=== PATIENT | male | born 1985 ===

== ENCOUNTER 2018-03-27 23:47 | Emergency (ER) | payer OTHER ==
[2018-03-27 23:54] VITALS: TEMP 97.5
--- NOTE | 2018-03-28 01:33 | ED PDOC ---
Lower Extremity Pain/Injury Time Seen by Provider: 03/28/18 00:29 Chief Complaint (Nursing): Lower Extremity Problem/Injury Chief Complaint (Provider): left ankle injury History Per: Patient History/Exam Limitations: no limitations Onset/Duration Of Symptoms: Days (yesterday) Current Symptoms Are (Timing): Still Present Additional Complaint(s): 32 y/o male presents to the ED complaining of rolling his left ankle after missing the curb yesterday morning. Patient reports pain to the ankle throughout the entire day. He notes that tonight his ankle gave out when he tried to plant his left foot while walking, prompting ED visit. Patient denies any prior injury to this ankle. The pain and swelling is localized to the outside of the ankle, w/o any radiation. He took Tylenol at 21:00 with minimal relief, and reports that the pain is worsened with movement and ambulation. Patient denies any other injury at this time. NO PMD Past Medical History Reviewed: Historical Data, Nursing Documentation, Vital Signs Vital Signs: Last Vital Signs Temp 97.5 F L 03/27/18 23:51 Pulse 100 H 03/27/18 23:51 Resp 18 03/27/18 23:51 BP 122/81 03/27/18 23:51 Pulse Ox 99 03/27/18 23:51 - Medical History PMH: No Chronic Diseases - Surgical History Other surgeries: surgery on left arm for torn muscle - Family History Family History: States: Unknown Family Hx - Social History Current smoker - smoking cessation education provided: No Alcohol: None Drugs: Denies - Home Medications Home Medications: Ambulatory Orders Medication Instructions Recorded Ibuprofen [Motrin Tab] 800 mg PO Q8 PRN #24 tab 03/28/18 - Allergies Allergies/Adverse Reactions: Allergies Allergy/AdvReac Type Severity Reaction Status Date / Time No Known Allergies Allergy Verified 03/27/18 23:51 Review of Systems ROS Statement: Except As Marked, All Systems Reviewed And Found Negative Constitutional: Negative for: Fever Musculoskeletal: Positive for: Foot Pain (left ankle) Physical Exam - Reviewed Nursing Documentation Reviewed: Yes Vital Signs Reviewed: Yes - Physical Exam Appears: Positive for: Well, Non-toxic, No Acute Distress Head Exam: Positive for: ATRAUMATIC, NORMOCEPHALIC Skin: Positive for: Normal Color, Warm, Dry Eye Exam: Positive for: EOMI, PERRL Neck: Positive for: Painless ROM, Supple Cardiovascular/Chest: Positive for: Regular Rate, Rhythm. Negative for: Murmur Respiratory: Positive for: Normal Breath Sounds. Negative for: Decreased Breath Sounds, Accessory Muscle Use, Respiratory Distress Gastrointestinal/Abdominal: Positive for: Soft. Negative for: Tenderness, Distended, Guarding Extremity: Positive for: Tenderness (to lateral malleolus of left ankle), Capillary Refill (intact), Swelling (to lateral malleous; no ecchymosis or skin break), Other (sensation intact). Negative for: Normal ROM (decreased range of motion of left ankle secondary to pain), Pedal Edema, Calf Tenderness, Deformity Neurologic/Psych: Positive for: Alert, Oriented (x3), Gait (limping in ED). Negative for: Motor/Sensory Deficits, Aphasia, Facial Droop - ECG O2 Sat by Pulse Oximetry: 99 (RA) Pulse Ox Interpretation: Normal Medical Decision Making Medical Decision Making: Time: --00:37 Impression: --left ankle injury, likely ankle sprain Plan: --Toradol 30 mg IM --Left Ankle X-ray Reassess 0210 XR reviewed: ? avulsion fracture of distal fibula vs talus Consult placed to podiatry. 02[address] with podiatry resident Dr Jess Purdy, who is agreeable to evaluating patient in ED. Recommends CT evaluation of lower extremity. CT ordered. 0355 Repeat HR: 92 Repeat BP: 132/[address] without incident. [address] reviewed, radiology report follows EXAM: CT Left Lower Extremity Without Intravenous Contrast, Ankle CLINICAL HISTORY: 32 years old, male; Injury or trauma; Fall; Initial encounter; Blunt trauma and swelling (edema); Ankle; Left; Additional info: R/O talus injury, probable avulsion FX TECHNIQUE: Axial computed tomography images of the left ankle without intravenous contrast. All CT scans at this facility use one or more dose reduction techniques, viz.: automated exposure control; ma/kV adjustment per patient size (including targeted exams where dose is matched to indication; i.e. head); or iterative reconstruction technique. Coronal and sagittal reformatted images were created and reviewed. COMPARISON: CR - ANKLE LEFT 3 VIEWS ROUTINE 2018-03-28 01:09 FINDINGS: Bones/joints: No acute fracture. Small ossicle along the distal fibula. Os perineum. Small ossicle along anterior process of calcaneus. No dislocation. No significant joint effusion. Soft tissues: [id number] stranding about ankle, predominantly lateral malleolus. IMPRESSION: 1. No fracture. 2. Incidental/non-acute findings are described above. Thank you for allowing us to participate in the care of your patient. Dictated and Authenticated by: Ben Pulido MD 03/28/2018 4:15 AM Eastern Time ([place] & [place]) 0455 Posterior short leg splint applied by Podiatry, Dr Purdy. NV intact after splint placement. Patient provided with crutches and instructed on crutch walking. On exam, patient remains AAOx3, in no acute distress. Lungs clear to auscultation, cardiac RRR, abdomen soft, non-tender, repeat neuro exam shows no focal findings. VSS, stable for discharge. Lab/Diagnostic results d/w the patient in great detail. Diagnosis of acute ankle pain/sprain, ATFL injury d/w the patient. Based on history, exam and diagnostic results, plan will be for outpatient follow up. Patient instructed to follow-up with pmd / referral provided / the clinic in 1- 2 days without fail. Advised to take medication as prescribed. Return to the emergency room at any time for any new or worsening symptoms. Patient states he fully agrees with and understands discharge instructions. States that he agrees with the plan and disposition. Verbalized and repeated discharge instructions and plan. I have given the patient opportunity to ask any additional questions. Scribe Attestation: Documented by Alberto Carbone acting as a scribe for DIEGO Gage. Provider Attestation: All medical record entries made by the Scribe were at my direction and personally dictated by me. I have reviewed the chart and agree that the record accurately reflects my personal performance of the history, physical exam, medical decision making, and the department course for this patient. I have also personally directed, reviewed, and agree with the discharge instructions and disposition. Disposition - Clinical Impression Clinical Impression: Ankle sprain, Ankle effusion - Patient ED Disposition Is Patient to be Admitted: No Counseled Patient/Family Regarding: Studies Performed, Diagnosis, Need For Followup, Rx Given - Disposition Referrals: Christian Szymanski DPM [[facility]] - Disposition: Routine/Home Disposition Time: 04:58 Condition: STABLE Additional Instructions: REST ICE COMPRESS (SPLINT/BANDAGE) ELEVATE Prescriptions: Ibuprofen [Motrin Tab] 800 mg PO Q8 PRN #24 tab PRN Reason: Pain, Moderate (4-7) Instructions: Ankle Sprain Forms: [facility] (Serbian) Print Language: PERSIAN
[2018-03-28 03:27] VITALS: BP 132/86; PULSE 92; RESP 16
[2018-03-28 04:01] VITALS: O2SAT 99
--- NOTE | 2018-03-28 04:16 | CT ---
EXAM: CT Left Lower Extremity Without Intravenous Contrast, Ankle CLINICAL HISTORY: 32 years old, male; Injury or trauma; Fall; Initial encounter; Blunt trauma and swelling (edema); Ankle; Left; Additional info: R/O talus injury, probable avulsion FX TECHNIQUE: Axial computed tomography images of the left ankle without intravenous contrast. All CT scans at this facility use one or more dose reduction techniques, viz.: automated exposure control; ma/kV adjustment per patient size (including targeted exams where dose is matched to indication; i.e. head); or iterative reconstruction technique. Coronal and sagittal reformatted images were created and reviewed. COMPARISON: CR - ANKLE LEFT 3 VIEWS ROUTINE 2018-03-28 01:09 FINDINGS: Bones/joints: No acute fracture. Small ossicle along the distal fibula. Os perineum. Small ossicle along anterior process of calcaneus. No dislocation. No significant joint effusion. Soft tissues: Cusp-[id number]-[id number] stranding about ankle, predominantly lateral malleolus. IMPRESSION: 1. No fracture. 2. Incidental/non-acute findings are described above.
--- NOTE | 2018-03-28 04:29 | CP.PCM.CON ---
History of Present Illness - History of Present Illness History of Present Illness: 32 y/o male with no significant PMHx seen in ED for complaints of left ankle pain s/p slipping and falling while stepping off a curb earlier today. He states he tried to walk on it all day but felt pain throughout. States he feels the pain on the outside of the ankle and says it feels loose. Denies taking any medications or attempting any treatment. Denies F/C/N/V/CP/SOB PSHx: left shoulder surgery All: NKDA Social: denies EtOH, cigarette or illicit drug use Review of Systems - Review of Systems All systems: reviewed and no additional remarkable complaints except (per HPI) Past Patient History - Past Social History Alcohol: None Drugs: Denies - PSYCHIATRIC Hx Substance Use: No - SURGICAL HISTORY Hx Musculoskeletal Surgery: Yes Meds Home Medications: Home Medication List Medication Instructions Recorded Confirmed Type Ibuprofen [Motrin Tab] 800 mg PO Q8 PRN #24 tab 03/28/18 Rx Allergies/Adverse Reactions: Allergies Allergy/AdvReac Type Severity Reaction Status Date / Time No Known Allergies Allergy Verified 03/27/18 23:51 Physical Exam - Constitutional Appears: Well, Non-toxic, No Acute Distress - Extremities Exam Additional comments: Left lower extremity focused exam: Vasc: DP/PT pulses 2/4. Temperature gradient warm to warm. CFT < 3 sec to all digits. Localized pedal edema noted over distal fibula and lateral talus. Derm: No open lesions, no erythema, no ecchymosis Neuro: Protective sensation grossly intact Ortho: Mild-moderate tenderness to passive ankle plantarflexion and subtalar joint inversion over region of ATFL. Decreased active ankle joint plantarflexion and subtalar joint inversion secondary to guarding. (-) calf tenderness. Ankle joint dorsiflexion WNL on both active and passive assessment. - Neurological Exam Neurological exam: Alert, Oriented x3 - Psychiatric Exam Psychiatric exam: Normal Affect, Normal Mood Results - Vital Signs Recent Vital Signs: Last Vital Signs Temp 97.5 F L 03/27/18 23:51 Pulse 92 H 03/28/18 03:26 Resp 16 03/28/18 03:26 BP 132/86 03/28/18 03:26 Pulse Ox 99 03/28/18 04:23 Assessment & Plan - Assessment and Plan (Free Text) Assessment: 32 y/o male with left lateral ankle instability secondary to trauma Plan: Pt seen and evaluated in ED Discussed with attending Dr. Szymanski X-rays of L ankle (-) for any acute osseous findings Pt placed in posterior splint and dispensed crutches Pt advised to remain NWB at all times and keep splint clean/dry/intact Pt educated that injury may be ligamentous in nature and would possible benefit from an outpatient MRI Pt to follow up with Dr. Szymanski in his office within 1 week Thank you for this consult
--- NOTE | 2018-03-28 09:34 | RAD ---
PROCEDURE: Left Ankle Radiographs. HISTORY: s/p fall COMPARISON: None FINDINGS: BONES: Bone alignment and mineralization are normal. There is no acute displaced fracture or bone destruction. A small well corticated ossific density medial to the lateral malleolus is most compatible with an accessory ossification center. JOINTS: Normal. No osteoarthritis. Ankle mortise maintained. Talar dome intact SOFT TISSUES: There is mild lateral soft tissue swelling. OTHER FINDINGS: None. IMPRESSION: No acute displaced fracture or dislocation. Mild lateral soft tissue swelling.
== END 2018-03-28 05:27 | disposition home or self-care (01) ==
LOC: H.ER 23:47
DX: S93.402A Sprain of unspecified ligament of left ankle, initial encounter (principal); X50.9XXA Other and unspecified overexertion or strenuous movements or postures, initial encounter; Y92.480 Sidewalk as the place of occurrence of the external cause
CPT/HCPCS: 29515; 73610; 73700; 96372; 99282; J1885